=== PATIENT | male | born 1970 | race African-American/Black ===

== ENCOUNTER 2017-03-18 04:34 | Emergency (ER) | payer OTHER ==
[~2017-03-18] VITALS: Ht 190.5 cm; Wt 117.9 kg
[2017-03-21 12:44] LABS: CHLAMYDIA TRACH Not Detected (Not Detected); N GONOR Detected (Not Detected)
== END 2017-03-18 05:57 | disposition home or self-care (01) ==
LOC: CED 04:34
PROVIDERS: Emergency Medicine
DX: A64 Unspecified sexually transmitted disease (principal); N34.2 Other urethritis; I10 Essential (primary) hypertension; F41.9 Anxiety disorder, unspecified
CPT/HCPCS: 87491; 87591; 96372; 99283; J0696